=== PATIENT | male | born 1975 | race Native Hawaiian/Other Pacific Islander ===

== ENCOUNTER 2024-08-28 07:40 | Emergency (ER) | payer BC, SELFPAY ==
[2024-08-28 07:53] VITALS: BP 177/112; PULSE 88; RESP 16; TEMP 36.2; O2SAT 96; BMI 25.7
--- NOTE | 2024-08-28 09:12 | ED.DENTAL ---
HPI - Dental/Oral General Chief complaint: Dental/Oral Stated complaint: broken molars dental pain Time Seen by Provider: 08/28/24 09:10 Source: patient, RN notes reviewed and old records reviewed Mode of arrival: ambulatory Limitations: no limitations History of Present Illness ED Provider: [facility] Narrative: Patient is a 49-year-old male with no reported past medical history presenting to the emergency department with complaint of dental pain to his right lower jaw. States he fractured a tooth 2 days ago and has been having severe pain since. Denies any difficulty opening or closing jaw or swallowing. Denies any shortness of breath or difficulty breathing. Denies fevers, neck swelling. BP elevated patient denies history of HTN, denies headache, blurred or double vision, dizziness or lightheadedness. Denies any chest pain, palpitations, dyspnea. MD Complaint: tooth pain Teeth map:  1. fractured tooth Related Data Previous Rx's ?Medication ?Instructions ?Recorded oxycodone 5 mg tablet 5 mg PO Q6H PRN severe pain (scale 08/28/24 score 7-10) #6 tabs Allergies Allergy/AdvReac Type Severity Reaction Status Date / Time Seafood Allergy Severe ANAPHYLAXIS Uncoded 08/28/24 07:56 Review of Systems Review of Systems: As per HPI Yes all other systems are reviewed and are negative Constitutional: Constitutional: Reports as per HPI [facility] Social History Social History Advance Directives: No Advance Directives Information Provided: Yes Physical Exam Vital Signs: Vital Signs: Last Vital Signs Temp 97.1 F 08/28/24 07:53 Pulse 88 08/28/24 07:53 Resp 16 08/28/24 07:53 BP 177/112 H 08/28/24 07:53 Pulse Ox 96 08/28/24 07:53 O2 Del Method Room Air 08/28/24 07:53 BMI result Body Mass Index 25.7 Vital signs have been reviewed and appear to be correct. Blood pressure elevated. Heart rate normal. Respiratory rate normal. Temperature normal. Oxygen saturation normal. Const: General: cooperative, healthy appearing and no acute distress Orientation/consciousness: oriented to person, oriented to place, oriented to time and patient oriented x3 Limitations: no limitations HEENT: Head: Yes normocephalic and Yes atraumatic Ears: external ears normal General nose exam: Normal external nose present Face and sinus: Yes face symmetric Mouth: oropharynx normal, moist mucous membranes, no drooling and no trismus Teeth image:  1. tooth #31 fractured without gingival erythema, edema or fluctuance Throat: Yes posterior oropharynx normal and Yes uvula midline Eyes: Pupils: Equal, round and reactive pupils present Neck: Neck: Yes normal visual inspection, Yes no lymphadenopathy and Yes supple Resp: Effort & Inspection: normal respiratory effort and able to speak in complete sentences Auscultation: clear to auscultation bilaterally Cardio: Rate: regular rate Rhythm: regular rhythm Heart sounds: S1 normal heart sound present and S2 normal heart sound present GI: Palpation (GI): Soft to palpation and nontender Auscultation: normoactive bowel sounds : General: Yes no CVA tenderness Back/Spine/Pelvis: Back: no CVA tenderness Skin: General skin exam: elasticity normal and turgor normal Neuro: General: oriented to person, oriented to place, oriented to time, patient oriented x3, moves all extremities, no focal motor deficits and CN's II-XI intact bilaterally Cranial nerves: Yes Equal, round and reactive pupils present Cognition (Neuro): normal cognition Extrem: General: Yes full ROM, Yes no pedal edema and Yes no calf tenderness Psych: Mental Status: mental status grossly normal Affect: normal affect Thought process: Normal thought process present Medical Decision Making Medical Decision Making [facility] Narrative: Patient is a 49-year-old male with no reported past medical history presenting to the emergency department with complaint of dental pain to his right lower jaw. On exam patient is awake, A+Ox3, BP elevated likely due to pain, VS otherwise WNL, afebrile, normal neurological exam without focal deficits, physical exam findings as above. Given reported symptoms and physical exam findings, initial differential includes but is not limited to dental pain, fractured tooth. No evidence of infection, abscess. No concern on review of [employer]. Will send prescription for a few oxycodone for severe pain. Patient was provided with a list of dental clinics in triage and was able to call and schedule an appointment while waiting, has appointment this afternoon at 2:30 scheduled. Return precautions discussed. Patient verbalized understanding of and agreement with plan. Differential Diagnosis Differential Diagnoses: The differential diagnosis associated with the presentation includes as per mdm Admission/Observation Consideration of admission/observation: Escalation of care including admission/observation considered Patient would have been admitted to the hospital had his clinical presentation warranted hospital admission. External Record Review External record reviewed: Inpatient record, Office record and Outpatient record Prescription Management I considered prescription management with: Pain Medication Discharge Plan Discharge Clinical Impression: Fracture of tooth Patient Disposition: Home, Self-Care Instructions: Toothache (ED), Tooth Extraction (DC) Additional Instructions: You were evaluated in the emergency department today for complaint of dental pain. We recommend that you take 600 mg of ibuprofen or 650 mg Tylenol every 6 hours as needed for pain. If necessary, you can alternate these medications every 3 hours. For example, at 9:00 a.m. take Tylenol, then at noon take ibuprofen, then at 3:00 p.m. take Tylenol, etc.. You are being prescribed a short course of oxycodone for severe pain. Do not take this medication with alcohol. Follow up with the dentist at your scheduled appointment this afternoon. Return to the emergency department if you develop worsening pain, swelling, difficulty swallowing, difficulty breathing, fever, or any other concerning symptoms. Call or visit any of the clinics below to establish care with a dentist: [facility] [address] [place] [address] [facility] [address] [facility], [address] [facility] [address] [place] [address] [facility] [address] [place] [address] [facility] [address] [place] [address] [place] [address] [place] [address] Prescriptions: New oxycodone 5 mg tablet 5 mg PO Q6H PRN (Reason: severe pain (scale score 7-10)) Qty: 6 0RF Rx Instructions: Partial Fill upon patient request. Stand Alone Forms: Work/School Release Print Language: Scottish
[2024-08-28 09:30] VITALS: BP 195/117; PULSE 84; RESP 16; TEMP 36.6; O2SAT 96
== END 2024-08-28 09:33 | disposition home or self-care (01) ==
PROVIDERS: Emergency Provider Emergency Medicine; PCP Family Medicine
DX: S02.5XXA Fracture of tooth (traumatic), initial encounter for closed fracture (principal); X58.XXXA Exposure to other specified factors, initial encounter; Y93.9 Activity, unspecified; Y92.9 Unspecified place or not applicable; Y99.9 Unspecified external cause status; Z79.899 Other long term (current) drug therapy
CPT/HCPCS: 99282; 99283

== ENCOUNTER 2025-01-19 17:58 | Emergency (ER) | payer BC, SELFPAY ==
--- NOTE | ~2025-01-19 | XR_ITS ---
CLINICAL HISTORY: severe pain since Sunday 4 view right ribs Comparison: None provided Findings: Tissue marker is identified in the right lower chest. Bones intact. No dislocations. The lungs are unremarkable. IMPRESSION: 1. No displaced fracture identified. This document has been electronically signed by: Elizabeth Valente MD on 01/19/2025 18:57:36
--- NOTE | 2025-01-19 18:01 | ED.GENADULT ---
HPI - General Adult General Chief complaint: General Medical Stated complaint: broken rib? diff breathing Time Seen by Provider: 01/19/25 19:17 Source: patient, RN notes reviewed and old records reviewed Mode of arrival: ambulatory Limitations: no limitations History of Present Illness ED Provider: [facility] narrative: Patient is a 49 year old male presenting with complaint of right sided rib pain since Sunday. Denies recent cough or URI sxs. Denies fall or other trauma. Does do heavy lifting often at work. Denies shortness of breath or chest pain. Denies fevers. MD complaint: rib pain Related Data Previous Rx's ?Medication ?Instructions ?Recorded oxycodone 5 mg tablet 5 mg PO Q6H PRN severe pain (scale 08/28/24 score 7-10) #6 tabs cyclobenzaprine 10 mg tablet 10 mg PO TID PRN muscle spasm #10 01/19/25 tabs lidocaine 5 % topical patch 1 patch topical DAILY #15 ea 01/19/25 naproxen 500 mg tablet 500 mg PO BID #14 tabs 01/19/25 Allergies Allergy/AdvReac Type Severity Reaction Status Date / Time Seafood Allergy Severe ANAPHYLAXIS Uncoded 01/19/25 18:03 Review of Systems Review of Systems: As per HPI Yes all other systems are reviewed and are negative Constitutional: Constitutional: Reports as per HPI Physical Exam ED Vital Signs: Vital Signs - 24 hr 01/19/25 18:02 Temperature 98 F Pulse Rate 71 Respiratory Rate 18 Blood Pressure 168/91 H Pulse Oximetry 98 Oxygen Delivery Method Room Air BMI result Body Mass Index 23.8 Vital signs have been reviewed and appear to be correct. Blood pressure elevated. Heart rate normal. Respiratory rate normal. Temperature normal. Oxygen saturation normal. Const General: cooperative, healthy appearing and no acute distress Orientation/consciousness: oriented to person, oriented to place, oriented to time and patient oriented x3 Limitations: no limitations HENMT Head: Yes normocephalic and Yes atraumatic Ears: external ears normal General nose exam: Normal external nose present Face and sinus: Yes face symmetric Mouth: oropharynx normal and moist mucous membranes Throat: Yes uvula midline Eyes Pupils: Equal, round and reactive pupils present Neck Neck: Yes normal visual inspection and Yes supple Chest Chest palpation & inspection: normal inspection of the chest, no crepitus and tenderness rib right anterior-axillary line involving the 9th rib, involving the 10th rib, involving the 11th rib and involving the 12th rib Resp Effort & Inspection: normal respiratory effort and able to speak in complete sentences Auscultation: clear to auscultation bilaterally Cardio Rate: regular rate Rhythm: regular rhythm Heart sounds: S1 normal heart sound present and S2 normal heart sound present GI Palpation (GI): Soft to palpation and nontender Auscultation: normoactive bowel sounds General: Yes no CVA tenderness Back/Spine/Pelvis Back: no CVA tenderness Skin General skin exam: elasticity normal and turgor normal Neuro General: oriented to person, oriented to place, oriented to time, patient oriented x3, moves all extremities, no focal motor deficits and CN's II-XI intact bilaterally Cranial nerves: Yes Equal, round and reactive pupils present Cognition (Neuro): normal cognition Extrem General: Yes full ROM, Yes no pedal edema and Yes no calf tenderness Psych Mental Status: mental status grossly normal Affect: normal affect Thought process: Normal thought process present Course Course Course Narrative: This is a rapid medical exam performed by Keesha Cross NP: Additional HPI, ROS, PE not included below will be deferred to primary provider. Patient is a 49y/o M presenting with complaint of right sided rib pain since Sunday. Denies recent cough or URI sxs. Does do lifting often at work. Plan: xray Medical Decision Making Medical Decision Making [facility] Narrative: Patient is a 49 year old male presenting with complaint of right sided rib pain since Sunday. On exam patient is awake, A+Ox3, VS WNL, afebrile, normal neurological exam without focal deficits, physical exam findings as above. Given reported symptoms and physical exam findings, initial differential includes but is not limited to costochondritis, rib fracture or, pneumothorax, pneumonia. X-ray right ribs and chest notable for no acute fracture, pneumothorax or pneumonia. My interpretation is in agreement with the radiologist's interpretation. Results discussed with patient all questions answered. We will send prescriptions for Flexeril, naproxen and topical lidocaine patches. Discussed with patient that pain may take several weeks to improve. Advised follow up with PCP. Return precautions discussed. Patient verbalized understanding of and agreement with plan. Differential Diagnosis Differential Diagnoses: The differential diagnosis associated with the presentation includes As per [facility] Admission/Observation Consideration of admission/observation: Escalation of care including admission/observation considered Patient would have been admitted to the hospital and transferred to appropriate facility had their clinical presentation warranted hospital admission. Independent Interpretation I performed an independent interpretation of an: Plain X-Ray Interpretation: X-ray of right ribs and chest is without evidence of rib fracture, pneumonia, pneumothorax. Radiology Impression Discussion of test interpretation with radiology: I have reviewed the radiologist's reading. Radiologist Impression: 4 view right ribs Comparison: None provided Findings: Tissue marker is identified in the right lower chest. Bones intact. No dislocations. The lungs are unremarkable. IMPRESSION: 1. No displaced fracture identified. Independent Historian Clinical information obtained from an independent historian. History obtained from or confirmed by: Spouse External Record Review External record reviewed: Inpatient record, Office record and Outpatient record Prescription Management I considered prescription management with: Pain Medication and Other Discharge Plan Discharge Clinical Impression: Acute costochondritis Patient Disposition: Home, Self-Care Instructions: Costochondritis (DC) Additional Instructions: You were evaluated in the emergency department today for right-sided rib pain. Your x-ray did not show evidence of any rib fractures or collapsed lung, or pneumonia. Your pain is likely due to a muscle strain. You have been prescribed a muscle relaxer which you can use every 8 hours. Do not use this in combination with alcohol as it can cause excessive drowsiness. You have also been prescribed naproxen which is an anti-inflammatory medication. Do not take this in combination with any other NSAIDs (ibuprofen, Motrin, Aleve, aspirin, etc.). You have also been prescribed topical lidocaine patches which you can wear for up to 12 hours in a 24 hour period. Do not apply heat directly over the patches. Follow up with your primary care provider for ongoing symptoms. Return to the emergency department if you develop worsening pain, shortness of breath or difficulty breathing, fever 100.4? F or greater or any other new or concerning symptoms. Prescriptions: New cyclobenzaprine 10 mg tablet 10 mg PO TID PRN (Reason: muscle spasm) Qty: 10 0RF lidocaine 5 % adhesive patch,medicated 1 patch topical DAILY Qty: 15 0RF Rx Instructions: leave on most painful area for up to 12 hrs naproxen 500 mg tablet 500 mg PO BID Qty: 14 0RF No Action oxycodone 5 mg tablet 5 mg PO Q6H PRN (Reason: severe pain (scale score 7-10)) Qty: 6 0RF Rx Instructions: Partial Fill upon patient request. Stand Alone Forms: Work/School Release Print Language: Kosovan
[2025-01-19 18:02] VITALS: BP 168/91; PULSE 71; RESP 18; TEMP 36.6; O2SAT 98; BMI 23.8
--- OUTSIDE RECORDS SUMMARY | 2025-01-19 19:27 | XMS_ITS ---
Author Name [facility] Organization Unknown Encounters Encounter Type Encounter Reason Primary Diagnosis Location Date Ambulatory [facility] 09/25/2024 Care Team Organization Name Specialty Phone Email Start Date End Da te [facility] 09/28
--- OUTSIDE RECORDS SUMMARY | 2025-01-19 19:27 | XMS_ITS | Encounter Summary ---
Author Organization [facility] Address [address] [facility] [address] [place] [phone] Phone Care Team Providers Care Claims Account Specialist Name Role Phone Jessenia Raza MD Primary Care Provider [phone] Jessenia Raza MD Unavailable [phone] Encounter Details Date Type Department Care Team (Late st Contact Info) Description 03/06/2023 Transcribe Orders [facility] [address] [place] [address] Jessenia Raza MD [address] [place] [address] juan Social History Tobacco Use Types Packs/Day Years Used Date Smoking Tobacco: Never Assessed Education Answer Date Recorded Are you interested in more education? Not on kesha e 03/02/2023 Are you concerned about learning? Not on file 03/02/2023 No 03/02/2023 No 03/02/2023 Digital Access Answer Date Recorded No 03/02/2023 No 03/02/2023 Reliable internet access at home? Not on file 03/02/2023 Device with a working camera? Not on file Sex and Gender Information Value Date Recorded Sex Assigned at Not on file Legal Sex Male 9:25 PM EDT Gender Identity Not on file Sexual Orientation Not on file documented as of this encounter Plan of Treatment Not on file documented as of this encounter Visit Diagnoses Not on filedocumented in this encounter Care Teams Claims Account Specialist Relationship Specialty Start Date End Date Jessenia Raza MD juan [email or web address] PCP - General 12/05/16 Jessenia Raza MD [address] [place] [id number] juan [email or web address] Insurance Assigned Provider 01/03/25 documented as of this encounter Additional Source Comments The information contained in this document represents components of the legal health record. It is not the complete legal health record.[facility]
--- OUTSIDE RECORDS SUMMARY | 2025-01-19 19:27 | XMS_ITS | Clinical Summary ---
Author Organization [facility] Address [address] [place] [phone] Phone Care Team Providers Care Sales Porter Name Role Phone Jessenia Raza MD Primary Care Provider Jessenia Raza MD Unavailable [phone] Medications oxyCODONE 5 MG immediate release tablet Take 1 tablet by mouth every 4 (four) hours as needed. 11/02/2015 Active HYDROmorphone (DILAUDID) 2 MG tablet Take 1-2 tablets by mouth every 6 (six) hours as needed. 10/12/2015 Active Encounters Date Type Department Care Team Description 11/17/2024 [facility] GENERATED External System Generated Encounter [address] [place] [id number] Unknown, Unknown, from Last 3 Months Social History Tobacco Use Types Packs/Day Years Used Date Smoking Tobacco: Never Assessed Education Answer Date Recorded Are you interested in more education? Not on kesha e 05/27/2023 Are you concerned about learning? Not on file 05/27/2023 No 05/27/2023 No 05/27/2023 Digital Access Answer Date Recorded No 05/27/2023 No 05/27/2023 Reliable internet access at home? Not on file 05/27/2023 Device with a working camera? Not on file Sex and Gender Information Value Date Recorded Sex Assigned at Not on file Legal Sex Male 9:25 PM EDT Gender Identity Not on file Sexual Orientation Not on file Last Filed Vital Signs Vital Sign Reading Time Taken Comments Blood Pressure - - Pulse - - Temperature - - Respiratory Rate - - Oxygen Saturation - - Inhaled Oxygen Concentration - - Weight 83.9 kg (185 lb) 11/02/2015 3:38 AM EDT Height 180.3 cm (5' 11 ) 11/02/2015 3:38 AM EDT Body Mass Index 25.8 11/02/2015 3:38 AM EDT Plan of Treatment Not on file Medical Devices Not on file Insurance ACO ACO Care Teams Sales Porter Relationship Specialty Start Date End Date Jessenia Raza MD juan PCP - General 12/05/16 Jessenia Raza MD [address] [place] [address] juan Insurance Assigned Provider 01/03/25 Additional Source Comments The information contained in this document represents components of the legal health record. It is not the complete legal health record.[facility]
[2025-01-19 19:50] VITALS: BP 168/91; PULSE 71; RESP 18; TEMP 36.6; O2SAT 98
== END 2025-01-19 19:51 | disposition home or self-care (01) ==
PROVIDERS: Emergency Provider Emergency Medicine Emergency Medical Services; PCP Family Medicine
DX: M94.0 Chondrocostal junction syndrome [Tietze] (principal); Z91.013 Allergy to seafood
CPT/HCPCS: 71101; 99282; 99283

== ENCOUNTER → 2025-01-19 18:03 | Outpatient (BNV) | payer BC, SELFPAY | PROVIDERS: PCP Family Medicine; Visit Provider Student in an Organized Health Care Education/Training Program | DX: R07.89 Other chest pain (principal) | CPT/HCPCS: 71101 ==